=== PATIENT | male | born 2000 | race Caucasian/White ===

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

== ENCOUNTER → 2021-04-10 | Outpatient (CLI) | payer OTHER, SELFPAY ==
[2021-04-12 19:10] LABS: Covid Inpatient test code BILL Performed (.)
== END | disposition home or self-care (01) ==
LOC: LABSPEC 16:57
PROVIDERS: PCP Pediatrics; Visit Provider Physician Assistant Surgical
DX: R09.81 Nasal congestion (principal)
CPT/HCPCS: 87635; U0005; U0003

== ENCOUNTER 2021-09-11 10:51 | Emergency (ER) | payer OTHER, SELFPAY ==
[2021-09-11 10:52] VITALS: BP 141/83; PULSE 99; RESP 18; TEMP 36.6; O2SAT 99; BMI 20.9
--- NOTE | 2021-09-11 11:28 | RAD_ITS ---
STUDY: X-RAY - RIGHT KNEE REASON FOR EXAM: Right knee pain, right knee injury. TECHNIQUE: 4 view(s) of the knee. COMPARISON: Radiograph report 09/23/2019. FINDINGS: There are postoperative changes of the distal femur and proximal tibia from anterior cruciate ligament reconstruction. Normal medial femorotibial compartment. Normal lateral femorotibial compartment. Normal patellofemoral articulation. The soft tissue structures are unremarkable. RAD/Knee 4 or More Views IMPRESSION: Postoperative changes from anterior cruciate ligament reconstruction. Otherwise, unremarkable x-ray examination of the right knee. Electronically Signed: Arturo Orozco MD at 13:32 EST ,
--- NOTE | 2021-09-11 11:28 | RAD_ITS ---
STUDY: X-RAY - LEFT TIBIA AND FIBULA REASON FOR EXAM: Left lower leg pain, left lower leg injury. TECHNIQUE: 2 view(s) of the tibia and fibula were obtained. COMPARISON: None. FINDINGS: Normal visualized tibia. Normal visualized fibula. The soft tissue structures are unremarkable. RAD/Tibia & Fibula 2 Views IMPRESSION: Unremarkable x-ray examination of the left tibia and fibula. Electronically Signed: Arturo Orozco MD at 12:21 EST ,
--- NOTE | 2021-09-11 11:28 | RAD_ITS ---
STUDY: X-RAY - LEFT KNEE REASON FOR EXAM: Left knee pain, left knee injury. TECHNIQUE: 4 view(s) of the knee. COMPARISON: None. FINDINGS: Normal visualized distal femur. Normal visualized proximal tibia and fibula. Normal proximal tibiofibular articulation. Normal medial femorotibial compartment. Normal lateral femorotibial compartment. Normal patellofemoral articulation. The soft tissue structures are unremarkable. RAD/Knee 4 or More Views IMPRESSION: Unremarkable x-ray examination of the left knee. Electronically Signed: Arturo Orozco MD at 12:15 EST ,
--- NOTE | 2021-09-11 11:28 | RAD_ITS ---
STUDY: X-RAY - RIGHT TIBIA AND FIBULA REASON FOR EXAM: Right lower leg pain, right lower leg injury. TECHNIQUE: 2 view(s) of the tibia and fibula were obtained. COMPARISON: None. FINDINGS: There are postoperative changes of the proximal tibia secondary to anterior cruciate ligament reconstruction. Otherwise, unremarkable visualized tibia. Normal visualized fibula. The soft tissue structures are unremarkable. RAD/Tibia & Fibula 2 Views IMPRESSION: Postoperative changes from anterior cruciate ligament reconstruction. Otherwise, unremarkable x-ray examination of the right tibia and fibula. Electronically Signed: Arturo Orozco MD at 12:28 EST ,
[2021-09-11] MEDS: HYDROcodone Bitartrate/Apap 5/325 Tablet PO (11:41)
[2021-09-11] MEDS: Diphth,Pertuss(Acell),Tet Vac 0.5 ML Vial IM (11:41)
[2021-09-11] MEDS: Lidocaine 1%/Epi 1:200 (30ml) 30 ML AMPUL INFILT (12:23)
[2021-09-11 12:24] VITALS: RESP 16
[2021-09-11 13:19] VITALS: RESP 16
--- NOTE | 2021-09-11 14:39 | ED.RN ---
PT ABLE TO AMBULATE TO BATHROOM NEXT DOOR BUT STATES THE LEFT CALF STILL FEELS WEIRD AND TIGHT. DR. MANCERA NOTIFIED OF THIS FINDING
[2021-09-11 14:55] VITALS: RESP 16
--- NOTE | 2021-09-11 14:58 | EDS_ITS ---
HPI History of Present Illness Chief Complaint: Lower Extremity Injury Informant: patient Narrative Narrative: Patient is a 21-year-old male with history of prior knee surgeries presenting with injury to his lower legs. Patient states he was working when pack of lumber fell off a forklift and pinned his legs. He states it was a 3000 pound pallet of plywood. It hit his bilateral shins. He was not pinned and was able to walk with assistance immediately afterwards. He denies any head injury. Denies any other complaints at this time besides lower leg pain. Tetanus Immunization: Unknown PFSH PFSH Home Medications amoxicillin-pot clavulanate 1 tab PO Q12H #14 tab 09/11/21 [Rx Last Taken Unknown] hydrocodone-acetaminophen 1 tab PO Q6H PRN 3 Days #12 tab 09/11/21 [Rx Last Taken Unknown] Allergy/AdvReac Type Severity Reaction Status Date / Time No Known Allergies Allergy Verified 04/11/21 14:45 Surgical History H/O reconstruction of anterior cruciate ligament tear Social History Smoking Status: Never smoker ROS ROS ED Constitutional Constitutional ED: Denies chills or fever(s) Eyes Eyes: Denies change in vision Cardiovascular Cardiovascular: Denies chest pain Respiratory/Chest Respiratory/Chest: Denies dyspnea Gastrointestinal Gastrointestinal: Denies nausea or vomiting Musculoskeletal Musculoskeletal: Reports other Details: bilateral sprague pain Integumentary Reports Abrasions Neurologic Neurologic: Reports paresthesias LLE; Denies headache(s) or weakness Psychiatric Psychiatric: Denies depression EXAM Physical Exam Const Vital Signs: 09/11/21 10:52 09/11/21 12:24 09/11/21 13:19 Temperature 98 F Temperature Source Temporal Pulse Rate 99 Respiratory Rate 18 16 16 Blood Pressure 141/83 H Blood Pressure Mean 102 Pulse Ox 99 Oxygen Delivery Method Room Air 09/11/21 14:55 Temperature Temperature Source Pulse Rate Respiratory Rate 16 Blood Pressure Blood Pressure Mean Pulse Ox Oxygen Delivery Method Positive well nourished and well developed General Appearance ED: well developed HEENT Reports TM's clear atraumatic Tympanic Membrane ED: Yes TM's clear Eyes PERRL Neck full ROM General: Negative for tenderness Chest Wall inspection of chest normal Resp normal respiratory effort and clear to auscultation bilaterally Cardio regular rhythm and no murmurs Cardio Narrative: 2+ bilateral DP and PT pulses Rate: regular rate GI normal to inspection, nondistended, normoactive bowel sounds Back/Spine normal to inspection Extremity Extremity Narrative: No obvious deformity. Contusion to bilateral anterior sprague. Tenderness to palpation of the bilateral anterior shins. No obvious step-off. Compartments are soft. Patient does have sensation intact to light touch of bilateral lower extremities. Able to ambulate. Normal Calles test bilaterally Neuro oriented x3, moves all extremities, no focal motor deficits and no sensory deficits noted Sensorium / Orientation: alert Skin Skin Narrative: 3 x 1 CM full thickness laceration right anterior sprague. No active bleeding. No foreign body visualized PROC Procedures Lacerations right sprague: Length: 1.18 in Depth: Skin Shape: Linear Prep: Chlorhexadine Laceration repair: Irrigated, Lidocaine with epi and Skin sutures Irrigated (ml): 500 Number of Sutures/Ramila: 5 Suture Information: Ethilon, Simple and 4-0 MDM MDM MDM Narrative Medical decision making narrative: Patient evaluated for lower leg pain after 3000 pound pallet fell and landed on his legs. He is neuro vastly intact even though he was complaining of numbness in triage. He has good distal pulses. He does have contusions to his legs. His compartments are soft. No fracture noted. He is given a dose of [place]thing[place] in the ER. Patient states he is afraid of needles and does not want an IV. Tetanus is updated. X-rays obtained do not show any acute process. Patient is complained of knee pain but does not have any obvious signs of deformity, effusion or trauma to the knees. No tibia or fibular fractures on x-ray. I suspect these are contusions. Laceration repair performed. See procedure note. As the injury was caused by plywood and x-ray is a lower sensitivity for organic matter I did place the patient on Augmentin for possibility of foreign body. No obvious foreign body was noted on laceration repair/wound cleansing. Patient is monitored in the ER for couple hours and his compartments on repeat evaluations maintain soft. As he does not have a fracture I think is less likely that he has compartment syndrome. He is counseled on the signs and symptoms requiring return to the emergency room. Patient is able to ambulate in the ER. He states that he has crutches at home that he can use. He will follow-up with the now clinic for suture removal in 10 to 14 days as well as orthopedics as needed. He states he is seeing Dr. Barba in the past is given referral for on-call orthopedics. Radiography Diagnostic Testing: Clinical Impression(s) from Imaging Studies Knee X-Ray 09/11/21 11:28 IMPRESSION: Postoperative changes from anterior cruciate ligament reconstruction. Otherwise, unremarkable x-ray examination of the right knee. Electronically Signed: Arturo Orozco MD at 13:32 EST , Knee X-Ray 09/11/21 11:28 IMPRESSION: Unremarkable x-ray examination of the left knee. Electronically Signed: Arturo Orozco MD at 12:15 EST , Tibia/Fibula X-Ray 09/11/21 11:28 IMPRESSION: Postoperative changes from anterior cruciate ligament reconstruction. Otherwise, unremarkable x-ray examination of the right tibia and fibula. Electronically Signed: Arturo Orozco MD at 12:28 EST , Tibia/Fibula X-Ray 09/11/21 11:28 IMPRESSION: Unremarkable x-ray examination of the left tibia and fibula. Electronically Signed: Arturo Orozco MD at 12:21 EST Reading Location ID and State: [id number] / [place] Tel , Service support , Discharge Plan Triage Chief Complaint: Lower Extremity Injury Other Complaint: Laceration Trauma ED Provider: Carina White Dx/Rx/DC Orders Clinical Impression: Contusion of left lower leg, Contusion of right lower leg, Laceration of right lower leg Instructions: ED Contusion, Lower Extremity, ED Laceration: All Closures Prescriptions: New hydrocodone-acetaminophen 5-325 mg tablet 1 tab PO Q6H PRN (Reason: pain) 3 Days Qty: 12 RF: 0 amoxicillin-pot clavulanate 875-125 mg tablet 1 tab PO Q12H Qty: 14 RF: 0 Primary Care Provider: Luis Mensah Referrals: Luis Mensah MD [Primary Care Provider] - Sudhakar Mireles DO [STAFF PHYSICIAN] - Activity Restrictions/Additional Instructions: Use crutches as needed for comfort. You can also take [id number] ibuprofen to help with the pain. If you start to have increased pain in your calf or you feel your leg is getting very hard please return to the emergency room. Please follow-up with the [facility] clinic in 10-14 days for suture removal. Disposition Disposition: Home, Self Care Discharge Date/Time: 09/11/21 15:13
== END 2021-09-11 15:13 | disposition home or self-care (01) ==
PROVIDERS: Emergency Provider Emergency Medicine; PCP Pediatrics; Visit Provider Emergency Medicine
DX: S81.811A Laceration without foreign body, right lower leg, initial encounter (principal); S80.11XA Contusion of right lower leg, initial encounter; S80.12XA Contusion of left lower leg, initial encounter; W20.8XXA Other cause of strike by thrown, projected or falling object, initial encounter; Y99.0 Civilian activity done for income or pay
CPT/HCPCS: 12002; 73564; 73590; 90715; 99284